=== PATIENT | female | born 1995 | race Caucasian/White ===

== ENCOUNTER 2019-05-01 12:35 | Outpatient (RCR) | payer OTHER, SELFPAY ==
[2019-04-29 12:52] LABS: Hematocrit 32.7 % (37.0-47.0); Hemoglobin 11.4 g/dL (12.0-15.0)
[2019-04-29 13:43] LABS: HIV 1/2 Ab P24 Ag Result Negative (Negative)
[2019-05-01] MEDS: RHO(D) IMMUNE GLOBULIN 300 MCG SYRINGE IM (13:30)
[2019-05-01 14:22] LABS: Glucose 1 Hour PP 50gm Dose 136 mg/dL
== END 2019-07-28 23:59 | disposition home or self-care (01) ==
LOC: ANHLAB 12:35
PROVIDERS: Visit Provider Obstetrics & Gynecology
DX: Z29.13 Encounter for prophylactic Rho(D) immune globulin (principal); O36.0990 Maternal care for other rhesus isoimmunization, unspecified trimester, not applicable or unspecified; Z36.89 Encounter for other specified antenatal screening; Z3A.00 Weeks of gestation of pregnancy not specified
CPT/HCPCS: 36415; 82947; 85014; 85018; 86703; 90384; 96372; G0432; J2790

== ENCOUNTER 2019-07-13 18:05 | Inpatient (IN) | payer OTHER, MEDICAID, SELFPAY ==
[2019-07-13] VITALS (10 sets, daily range): BP systolic 111–136; BP diastolic 41–83; PULSE 69–96; TEMP 37.6; BMI 24.5
--- NOTE | 2019-07-13 18:35 | LDADM ---
This patient, Britany Bell, was admitted to Labor/Delivery/Recovery 109 on 07/13/19 at 18:05. Plans for labor, pain management and were discussed with patient. Patient/family oriented to hospital policies and general routines including ID bracelet, bed and alarms, visiting hours, pain management, procedures, bathroom and other care routines, personal items, smoking policy, room service/diet and guest tray routines, security routines, and visiting hours. Patient/Family are encouraged to report perceived risks to care and to ask questions if they do not understand what they are told or what they should do. See OBIX for further documentation.
[2019-07-13 18:54] LABS: Basophils Percent Auto 0.3 % (0.2-1.2); Eosinophils Absolute Auto 0.1 K/mm3 (0-0.3); Eosinophils Percent Auto 0.4 % (0-4.4); Hematocrit 34.7 % (37.0-47.0); Immature Granulocyte Absolute 0.04 K/mm3 (0.00-0.031); Immature Granulocyte Percent A 0.4 % (0-0.5); Lymphocytes Absolute Auto 2.19 K/mm3 (0.9-3.2); Lymphocytes Percent Auto 19.4 % (18.3-44.2); Mean Corpuscular HGB Conc 34.6 g/dl (32-36); Mean Corpuscular Hemoglobin 30.3 pg (26-34); Mean Corpuscular Volume 87.6 fl (80-100); Mean Platelet Volume 9.5 fl (7.4-10.4); Monocytes Absolute Auto 0.9 K/mm3 (0.1-0.6); Monocytes Percent Auto 7.9 % (2.6-8.5); Neutrophils Absolute Auto 8.1 K/mm3 (1.3-6.7); Neutrophils Percent Auto 71.6 % (45.5-73.1); Platelet Count Result 153 k/mm3 (150-375); Red Blood Count 3.96 M/mm3 (4.2-5.4); Red Cell Distribution Width 12.9 % (11.5-14.5); White Blood Count 11.3 K/mm3 (4.5-10.0)
[2019-07-13] MEDS: DINOPROSTONE 10 MG VAG INSERT VAGINAL (19:06)
[2019-07-14] VITALS (76 sets, daily range): BP systolic 77–153; BP diastolic 50–95; PULSE 57–205; RESP 18; TEMP 36.5–37.6; O2SAT 98–100
[2019-07-14] MEDS: OXYTOCIN 30 UNITS/NS 500 ML 30 UNITS/500 ML BAG 6 UNITS IV CONT (05:25)
[2019-07-14] MEDS: LACTATED RINGERS 1,000 ML 125 ML IV CONT ×2 (05:25→10:30)
[2019-07-14 13:36] LABS: Rapid Plasma Reagin Non-Reactive (NonReactive)
--- NOTE | 2019-07-14 16:42 | P.PCNOB_ITS ---
OB - Delivery Note Procedure Intrapartal events: Prolonged 2nd Stage > 2.5 hours Route of delivery: vacuum extraction Indication for instrumentation: other (arrest of descent) Episiotomy description: None Laceration description: Perineal - 3rd Degree (partial) Delivery repair: vicryl and chromic Specimen: Yes Estimated blood loss (mL): 300 Anesthesia type: Epidural Disposition: floor Narrative: Early Branch Baby Weeks of gestation at delivery: 39 gender: Male Weight (pounds): 7 Weight (ounces): 3 presentation: vertex cord vessel description: 3 Vessels score one minute: 4 score five minutes: 6 score ten minutes: 9
--- NOTE | 2019-07-14 16:48 | PM.OBPRVD ---
OB - Delivery Note Procedure Intrapartal events: Prolonged 2nd Stage > 2.5 hours Laceration description: Perineal - 3rd Degree (partial) Estimated blood loss (mL): 300 Anesthesia type: Epidural Narrative: Patient was prepped and draped in usual manner for this procedure. Vertex was noted with a +2 station and vacuum was placed without difficulty. With 4 contractions the vertex was delivered with no pop offs in between. Once the vertex was delivered the rest of baby was delivered cord clamped cut baby was passed off to pediatric team in attendance. Placenta then delivered spontaneously. Surgeon valuable were inspected with partial third-degree laceration noted. Rectal sphincter was approximated using 0 Vicryl suture in 3 interrupted sutures. Bilateral sulcus tears were then approximated using 2 0 chromic suture running interlocking manner. The then the vaginal laceration was approximated using Laceyiz 2 0 chromic suture the to the perineum deep tissue was approximated using 0 plain interrupted sutures and subcuticular layer of 2 0 chromic was then used to approximate the perineal tissue. There is no significant bleeding uterus was well contracted at this point seizure was considered terminated. Baby Weeks of gestation at delivery: 39 Infant gender: Male Weight (pounds): 7 Weight (ounces): 3 presentation: vertex score one minute: 4 score five minutes: 6 score ten minutes: 9
[2019-07-14] MEDS: OXYTOCIN 30 UNITS/NS 500 ML 30 UNITS/500 ML BAG 125 UNITS IV CONT (16:52)
[2019-07-14] MEDS: WITCH HAZEL 40 PADS 1 PAD TOPICAL (18:55)
[2019-07-14] MEDS: BENZOCAINE 20% AER SPR (*SP) 56 GM CAN 1 SPRAY TOPICAL (18:55)
--- NOTE | 2019-07-14 19:49 | OBPPTRN ---
Patient transferred to post room #285 via wheelchair with baby in bassinet. Support person present. Oriented to unit, room, information board, rooming in, admission packet and security measures. Patient verbalizes understanding.
[2019-07-14] MEDS: IBUPROFEN 600 MG TABLET PO (21:18)
[2019-07-15 05:47] LABS: Hematocrit 28.7 % (37.0-47.0); Hemoglobin 9.9 g/dL (12.0-15.0)
--- NOTE | 2019-07-15 06:45 | PC.NURSE ---
PT introductions made and plan of care discussed per post , pain management, breast feeding, daily care activities. PT verbalized understanding of such care.
--- NOTE | 2019-07-15 06:59 | PM.OBPNVD ---
OB - PN: Subj Subjective Date/time seen: 07/15/19 06:59 Pain well controlled. Urinary retention with 1000+ prior to catheter. No other issues. OB - PN: Obj Data Labs CBC & Chem 7: 07/15/19 05:28 Labs: Laboratory Results - last 24 hr 07/13/19 07/15/19 18:44 05:28 Hgb 9.9 L Hct 28.7 L RPR Non-reactive OB - PN A/P Assessment and Plan (1) Urinary retention: Code(s): R33.9 - Retention of urine, unspecified Status: Acute Assessment and Plan: continue catheter until morning. Reassess at that time. Time Spent With Patient Time: Total time spent is greater than 50% in coordination of care (as documented) at patient's floor/unit and/or counseling patient:
--- NOTE | 2019-07-15 07:01 | PM.OBDSVD ---
OB - DS: Summary OB Procedures : None OB Procedures Intrapartum: Vacuum extraction OB Procedures: : None Time Spent with Patient Time attestation: Total time spent providing and/or coordinating discharge services: DS: Data Data Completed and Pending Pending studies at discharge: Pending at discharge 07/13/19 16:12 Surgical [PTH] Routine Labs on day of discharge: Labs from last 24 hours 07/15/19 07/13/19 05:28 18:44 Hgb 9.9 L Hct 28.7 L RPR Non-reactive Discharge Plan Discharge Discharging Clinician: Adithya Guardado Patient Disposition: Home, Self-Care Activity: as tolerated Diet: as tolerated Patient Instructions: Antibiotic Form Stand Alone Forms: General Discharge Information Follow-up/Referrals: Adithya Guardado MD [Physician] - 3 Weeks Discharge Medications: New hydrocodone-acetaminophen 5-325 mg Tablet 1 tab PO Q3H PRN (Reason: Moderate Pain (4-6)) Qty: 20 RF: 0 ibuprofen 600 mg Tablet 600 mg PO Q6H PRN (Reason: Cramping) Qty: 30 RF: 0 Continued PNV cmb#95-ferrous fumarate-FA [] 28 mg iron- 800 mcg Tablet 1 tablet PO DAILY RF: 0 Date of admission: 07/13/19 18:05 Primary Care Provider: UNKNOWN,DOCTOR Admitting Provider: Adithya Guardado Attending physician on admission: Adithya Guardado
[2019-07-15] MEDS: IBUPROFEN 600 MG TABLET PO ×2 (09:18→17:10)
[2019-07-15] MEDS: POLYSACCHARIDE IRON COMPLEX 150 MG CAPSULE PO ×3 (09:19→17:10)
[2019-07-15] MEDS: MULTIVIT/MIN/PREN/FOL AC/IRON TABLET 1 TAB PO (09:20)
[2019-07-15] MEDS: DOCUSATE SODIUM 100 MG CAPSULE PO ×2 (09:20→17:10)
[2019-07-15 09:30] VITALS: BP 102/61; PULSE 89; RESP 18; TEMP 37.3; O2SAT 99
[2019-07-15] MEDS: ACETAMINOPHEN 325 MG TABLET 650 MG PO ×2 (12:51→17:14)
--- NOTE | 2019-07-15 13:53 | WPDANLDPN2 ---
Anes-Prog Note L&D Date/Time: 07/15/19 13:53 Comfortable throughout: labor and delivery Neuraxial method: epidural Epidural/Spinal procedure site: clean & non-tender Neuro status: Neuro function grossly intact. Cardiovascular status: normal Respiratory status: normal Airway patency: baseline Mental status: baseline Post-Op hydration status: normal Vital Signs: Last Vital Signs Temp 97.7 F 07/14/19 20:15 Pulse 70 07/14/19 20:15 Resp 18 07/14/19 20:15 BP 105/67 07/14/19 20:15 Pulse Ox 99 07/14/19 20:15 I/O: Intake & Output 07/14/19 07/15/19 07/15/19 23:59 07:59 15:59 Intake Total 1200 Output Total 1363 Balance -163 Patient feedback: Patient satisfied with anesthetic care.
[2019-07-15] MEDS: RHO(D) IMMUNE GLOBULIN 300 MCG SYRINGE IM (18:50)
[2019-07-15] MEDS: LANOLIN (LANSINOH) 7.5 GM CREAM 1 APPLIC TOPICAL (19:00)
[2019-07-15 22:48] VITALS: BP 122/75; PULSE 96; RESP 18; TEMP 37.5; O2SAT 99
[2019-07-16] MEDS: ACETAMINOPHEN 325 MG TABLET 650 MG PO ×3 (02:46→19:05)
[2019-07-16] MEDS: IBUPROFEN 600 MG TABLET PO ×3 (02:46→19:07)
--- NOTE | 2019-07-16 07:30 | PC.NURSE ---
PT introductions made and plan of care discussed per post , pain management, breast feeding, daily care activities, and pending discharge to home. PT verbalized understanding of such care.
[2019-07-16] MEDS: DOCUSATE SODIUM 100 MG CAPSULE PO ×2 (11:28→19:05)
[2019-07-16] MEDS: MULTIVIT/MIN/PREN/FOL AC/IRON TABLET 1 TAB PO (11:28)
[2019-07-16] MEDS: POLYSACCHARIDE IRON COMPLEX 150 MG CAPSULE PO ×2 (11:28→19:05)
[2019-07-16 11:30] VITALS: BP 124/80; PULSE 94; RESP 18; TEMP 37.5; O2SAT 100
--- NOTE | 2019-07-16 15:30 | PC.NURSE ---
PT voided in the shower and large amount and said she feels so much better. NO evidence of bladder distention and fundus firm at u-2
--- NOTE | 2019-07-16 18:52 | PC.NURSE ---
PT received discharge instructions per protocol and verbalized understanding of such care.
--- NOTE | 2019-07-19 08:30 | PM.OBDSVD ---
DS: Diagnosis Admitting Diagnosis Admitting Diagnosis: Retention of urine, unspecified OB - DS: Summary OB Procedures : None OB Procedures Intrapartum: Vacuum extraction OB Procedures: : None Time Spent with Patient Time attestation: Total time spent providing and/or coordinating discharge services: DS: Data Data Completed and Pending Pending studies at discharge: Pending at discharge 07/13/19 16:12 Surgical [PTH] Routine Discharge Plan Discharge Discharging Clinician: Adithya Guardado Patient Disposition: Home, Self-Care Activity: as tolerated Diet: as tolerated Discharge Instructions: Education: Mom and Baby Guide Given to: Mother Follow-Up: Call your delivering provider's office for an appointment to be seen in: 3 weeks Mom and baby should come to the [facility] for the follow-up appointment. Appointment Date/Time: July 19, 2019 at 11:00 am What to expect at your follow-up visit: Blood Pressure Check Call [phone] if you are unable to keep your appointment time. BREAST CARE: 1. Wear a snug supportive bra. 2. For engorgement discomfort: Breast Feeding: A. Apply warm moist washcloths B. Express milk as needed to relieve engorgement C. Wear loose clothing 3. For sore nipples: A. Identify correct latch-on B. Apply warm moist washcloths before and after nursing C. Air dry nipples after nursing D. May apply Lansinoh cream to nipples PERINEAL CARE: 1. Until bleeding stops, use your shelly bottle after urinating 2. Change your pad frequently throughout the day 3. You may take sitz baths several times a day (fill your bathtub with warm water and soak for 20 minutes.) Do NOT bathe in the water 4. No tub baths until seen by your physician - You may shower ACTIVITY: 1. Rest as much as possible. 2. Do not exercise or lift anything heavier than your baby (such as laundry or other children.) 3. Avoid stairs or driving as much as possible. 4. Do not put anything into the vagina. No douching, tampons, or sexual activity until seen by physician. NOTIFY PHYSICIAN IF YOU HAVE ANY QUESTIONS OR IF ANY OF THE FOLLOWING SYMPTOMS OCCUR: 1. If your perineum becomes red, swollen, or more painful than what you have experienced in the hospital. 2. If your vaginal bleeding becomes foul smelling. 3. If your vaginal bleeding becomes more heavy than a period or if your bleeding changes from pink to bright red. However, you may pass an occasional walnut-sized clot once or twice for the first week . 4. If you experience a sharp, shooting pain in you calves. 5. If you discover a hard, reddened area on your breast or if you experience flu-like symptoms. 6. Call for temp 100.4 or greater DIET: 1. Eat regular, well-balanced meals. 2. Drink plenty of fluids daily. If , drink to thirst. Patient Instructions: Antibiotic Form Stand Alone Forms: General Discharge Information Follow-up/Referrals: Adithya Guardado MD [Physician] - 3 Weeks Discharge Medications: New hydrocodone-acetaminophen 5-325 mg Tablet 1 tab PO Q3H PRN (Reason: Moderate Pain (4-6)) Qty: 20 RF: 0 ibuprofen 600 mg Tablet 600 mg PO Q6H PRN (Reason: Cramping) Qty: 30 RF: 0 Continued PNV cmb#95-ferrous fumarate-FA [] 28 mg iron- 800 mcg Tablet 1 tablet PO DAILY RF: 0 Date of admission: 07/13/19 18:05 Primary Care Provider: UNKNOWN,DOCTOR Admitting Provider: Adithya Guardado Discharge Date/Time: 07/16/19 19:38 Attending physician on admission: Adithya Guardado
[2019-07-19 10:40] VITALS: BP 125/82; PULSE 105; RESP 16; TEMP 36.8; O2SAT 98
== END 2019-07-16 19:38 | disposition home or self-care (01) | DRG 768 ==
LOC: ANHLDR 07-14 14:14 → ANHOB2 07-14 20:31
PROVIDERS: Admitting Provider Obstetrics & Gynecology; Visit Provider Obstetrics & Gynecology
DX: O62.1 Secondary uterine inertia (principal); Z37.0 Single live birth; O70.20 Third degree perineal laceration during delivery, unspecified; R33.9 Retention of urine, unspecified; Z3A.39 39 weeks gestation of pregnancy
CPT/HCPCS: 36415; 85014; 85018; 85025; 86592; 86850; 86880; 86900; 86901; 86902; 88307; 90384; A9270; J2590; J2790; J2795; J3010; J7120

== ENCOUNTER 2022-11-09 19:53 | Emergency (ER) | payer OTHER, SELFPAY | END 2022-11-09 20:00 | disposition left against medical advice (07) | PROVIDERS: PCP Family Medicine | DX: Z53.21 Procedure and treatment not carried out due to patient leaving prior to being seen by health care provider (principal) | CPT/HCPCS: 99199 ==